=== PATIENT | female | born 1995 | race African-American/Black ===

== ENCOUNTER 2018-06-12 21:16 | Emergency (ER) | payer MEDICAID ==
[~2018-06-12] VITALS: Ht 170.2 cm; Wt 48.8 kg
[2018-06-12 21:18] VITALS: BP 127/82
== END 2018-06-12 22:23 | disposition home or self-care (01) ==
LOC: ED 22:17
DX: S19.9XXA Unspecified injury of neck, initial encounter (principal); G44.219 Episodic tension-type headache, not intractable; V49.49XA Driver injured in collision with other motor vehicles in traffic accident, initial encounter; Y93.89 Activity, other specified; Y92.89 Other specified places as the place of occurrence of the external cause; Y99.8 Other external cause status
CPT/HCPCS: 72050; 99283

== ENCOUNTER 2018-06-16 10:57 | Emergency (ER) | payer MEDICAID ==
[~2018-06-16] VITALS: Ht 170.2 cm; Wt 48.1 kg
[2018-06-16 11:00] VITALS: BP 137/89
[2018-06-16 11:46] LABS: HCG UR SG 1.006 (1.003-1.030); MICROSCOPIC AUTO
[2018-06-16 11:49] LABS: CULTURE INDICATED? YES
== END 2018-06-16 12:23 | disposition home or self-care (01) ==
LOC: ED 11:58
DX: N93.8 Other specified abnormal uterine and vaginal bleeding (principal)
CPT/HCPCS: 81001; 81025; 87086; 99283